=== PATIENT | male | born 1960 | race Caucasian/White ===

== ENCOUNTER → 2021-01-06 | Outpatient (CLI) | payer SELFPAY ==
[2021-01-06 13:29] LABS: BUN 13 mg/dl (7-24); CHLORIDE 107 mmol/L (98-107); CREATININE 0.76 mg/dL (0.70-1.30); POTASSIUM 4.3 mmol/L (3.5-5.1); SODIUM 140 mmol/L (136-145)
== END | disposition home or self-care (01) ==
LOC: LAB 12:57
PROVIDERS: ATTEND Family Medicine
DX: E11.9 Type 2 diabetes mellitus without complications (principal)

== ENCOUNTER 2021-03-14 17:28 | Emergency (ER) | payer SELFPAY ==
[2021-03-14 18:04] LABS: BASO % 0.2 % (0.0-1.0); EOS % 0.8 % (1.0-4.0); HEMATOCRIT 41.3 % (42.0-52.0); LYMPH # 0.5 10*3/uL (1.3-4.4); LYMPH % 9.1 % (27.0-41.0); MEAN CELL VOLUME 89.6 fl (80.0-94.0); MEAN CORPUSCULAR HGB 30.2 pg (27.0-31.0); MEAN CORPUSCULAR HGB CONC 33.7 g/dl (33.0-37.0); MEAN PLATELET VOLUME 8.9 fl (9.6-12.3); MONO % 17.9 % (3.0-9.0); NEUT # 3.8 10*3/uL (2.3-7.9); NEUT % 71.6 % (47.0-73.0); PLATELET COUNT AUTOMATED 262 10*3/uL (130-400); RED BLOOD COUNT 4.61 10*6/uL (4.50-5.90); RED CELL DISTRI WIDTH 19.1 % (0-14.5); WHITE BLOOD COUNT 5.3 10*3/uL (4.8-10.8)
[2021-03-14 18:23] LABS: ALBUMIN 2.9 gm/dl (3.1-4.5); ALKALINE PHOSPHATASE 93 U/L (45-117); BUN 15 mg/dl (7-24); CHLORIDE 104 mmol/L (98-107); CREATININE 0.89 mg/dL (0.70-1.30); POTASSIUM 3.7 mmol/L (3.5-5.1); SGOT/AST 17 IU/L (3-35); SGPT/ALT 28 U/L (12-78); SODIUM 136 mmol/L (136-145); TOTAL PROTEIN 6.8 gm/dL (6.4-8.2)
[2021-03-14 18:25] LABS: TROPONIN I < 0.015 ng/ml (<0.045)
== END 2021-03-15 00:30 | disposition home or self-care (01) ==
LOC: ED 17:28
PROVIDERS: Emergency Medicine
DX: I47.1 Supraventricular tachycardia (principal); R73.9 Hyperglycemia, unspecified

== ENCOUNTER 2021-03-28 11:40 | Emergency (ER) | payer SELFPAY | END 2021-03-28 12:25 | disposition left against medical advice (07) | LOC: ED 11:40 | DX: R00.2 Palpitations (principal); Z53.21 Procedure and treatment not carried out due to patient leaving prior to being seen by health care provider ==

== ENCOUNTER 2021-06-15 15:41 | Emergency (ER) | payer SELFPAY ==
[~2021-06-15] VITALS: Ht 177.8 cm; Wt 69.4 kg
[2021-06-15] MEDS ORDERED: METOPROLOL TART50 M1 PO (15:57)
[2021-06-15] MEDS ORDERED: PANTOPRAZOLE SO40 MG PO (15:57)
[2021-06-15] MEDS ORDERED: METFORMIN HYD1000 MG PO (15:58)
[2021-06-15] MEDS ORDERED: HYDROCODONE-AC1 EAC1 PO (23:20)
== END 2021-06-15 23:30 | disposition home or self-care (01) ==
LOC: ED 15:41
DX: C79.51 Secondary malignant neoplasm of bone (principal)